=== PATIENT | female | born 1990 | race Two or more races ===

== ENCOUNTER 2020-10-01 19:59 | Emergency (ER) | payer SELFPAY ==
[~2020-10-01] VITALS: Ht 157.5 cm; Wt 75.0 kg
[2020-10-01 20:02] VITALS: BP 109/57
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
--- NOTE | 2020-10-01 20:18 | NUR ---
DR. SCHULTZ AT BEDSIDE FOR ASSESSMENT OF PATIENT.
[2020-10-01 21:38] LABS: BASOPHILS % (AUTO) 0 % (0-1); EOSINOPHILS % (AUTO) 0 % (1-7); LYMPHOCYTES % (AUTO) 9 % (22-44); MEAN CORPUSCULAR HEMOGLOBIN 30.6 pg (27.0-34.8); MEAN CORPUSCULAR HGB CONC 33.9 g/dL (32.4-35.8); MEAN PLATELET VOLUME 9.1 fL (7.4-10.4); MONOCYTES % (AUTO) 6 % (2-9); NEUTROPHILS % (AUTO) 86 % (42-75); PLATELET COUNT 333 x10^3/uL (130-400); RED BLOOD COUNT 4.12 x10^6/uL (3.82-5.3); RED CELL DISTRIBUTION WIDTH 14.7 % (9.6-15.2)
--- NOTE | 2020-10-01 21:38 | NUR ---
BEDSIDE REPORT GIVEN TO CHRISTOFER HOBSON. PT TRANSFERRED TO ROOM 1, MONITORING IN PLACE AT THIS TIME.
[2020-10-01 21:39] LABS: MD NO
--- NOTE | 2020-10-01 21:40 | NUR ---
PATIENT RESTING IN BED IN NAD. [facility]ANTS REMAIN IN PLACE ON RUE AND LLE DUE TO PREVOUS COMBATIVENESS IN FIELD. SAFETY MAINTAINED. 1:1 IN VIEW OF PATIENT. VS REMAIN STABLE ON RA AT THIS TIME
[2020-10-01 21:47] LABS: ALANINE AMINOTRANSFERASE 22 U/L (12-78); ALBUMIN 3.8 g/dL (3.4-5.0); ANION GAP 6 mmol/L (5-15); CALCIUM 8.9 mg/dL (8.5-10.1); CHLORIDE 109 mmol/L (98-107); CREATININE 0.99 mg/dL (0.55-1.02); SALICYLATE LEVEL < 1.7 mg/dL (2.8-20.0)
[2020-10-01 21:49] LABS: ALKALINE PHOSPHATASE 85 U/L (45-117); BILIRUBIN,TOTAL 0.7 mg/dL (0.2-1.0); TOTAL PROTEIN 7.2 g/dL (6.4-8.2)
--- NOTE | 2020-10-01 22:23 | NUR ---
ASKED PATIENT IF SHE WAS ABLE TO USE A BEDPAN TO GET A URINE SAMPLE. PATIENT OPENED HER EYES, LOOKED AT ME IN A DELAYED RESPONSE AND DID NOT RESPOND AND TURNED HEAD TO THE LEFT AND CLOSED HER EYES AGAIN
--- NOTE | 2020-10-01 23:10 | NUR ---
PATIENT PROVIDED WATER AND USE OF BED PEÑA. COOPERATIVE WITH CARE. ASKING FOR PLAN. A&OX4
[2020-10-01 23:46] LABS: AMPHETAMINE SCREEN, URINE Negative (Negative); BARBITURATE SCREEN, URINE Negative (Negative); BENZODIAZEPINE SCREEN, URINE Positive (Negative); CANNABINOID SCREEN, URINE Positive (Negative); COCAINE SCREEN, URINE Positive (Negative); METHADONE SCREEN, URINE Negative (Negative); OPIATE SCREEN, URINE Negative (Negative)
--- NOTE | 2020-10-01 23:50 | NUR ---
RESTRAINTS REMOVED BY SECURITY. PATIENT BEING COOPERATIVE AT THIS TIME
--- NOTE | 2020-10-02 01:23 | NUR ---
PATIENT RESTING IN BED IN NAD. 1:1 SITTER IN VIEW OF PATIENT. WILL CONTINUE TO MONITOR.
== END 2020-10-02 02:01 | disposition home or self-care (01) ==
LOC: ED 23:04
DX: F14.122 Cocaine abuse with intoxication with perceptual disturbance (principal); F12.122 Cannabis abuse with intoxication with perceptual disturbance; R45.851 Suicidal ideations
CPT/HCPCS: 36415; 80053; 80299; 80307; 80320; 80329; 85025; 99283; G0480

== ENCOUNTER 2020-10-02 13:20 | Emergency (ER) | payer MEDICAID ==
[~2020-10-02] VITALS: Ht 160 cm; Wt 72.0 kg
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
[2020-10-02 15:01] VITALS: BP 156/83
--- NOTE | 2020-10-02 15:03 | NUR ---
URINE COLLECTED AND SENT TO LAB AROUND 1400
--- NOTE | 2020-10-02 15:06 | NUR ---
BREAK RN: TELEPHONE CALL TO LAB, STATES THEY HAVE URINE AND WILL PROCESS NOW. REPORT GIVEN TO JODY BEAULIEU.
[2020-10-02 15:12] LABS: HCG UR SG 1.005 (1.003-1.030)
--- NOTE | 2020-10-02 15:37 | NUR ---
Patient/Caregiver given discharge instructions and they have confirmed that they understand the instructions. Patient ambulatory with steady gait.
== END 2020-10-02 15:44 | disposition home or self-care (01) ==
LOC: ED 15:25
DX: F31.9 Bipolar disorder, unspecified (principal); F20.9 Schizophrenia, unspecified; F12.10 Cannabis abuse, uncomplicated; F14.10 Cocaine abuse, uncomplicated
CPT/HCPCS: 81025; 99284; Q0177